=== PATIENT | female | born 1965 ===

== ENCOUNTER 2017-11-23 20:24 | Emergency (ER) | payer MEDICAID ==
[2017-11-23 20:33] VITALS: TEMP 98
--- NOTE | 2017-11-23 20:53 | ED PDOC ---
Upper Extremity Pain/Injury Time Seen by Provider: 11/23/17 20:40 Chief Complaint (Nursing): Dizziness/Lightheaded History Per: Patient History/Exam Limitations: no limitations Onset/Duration Of Symptoms: Days Current Symptoms Are (Timing): Still Present Additional Complaint(s): Hx of HLD, cervical disc herniation presenting with LUE numbness, tingling, pain. States the pain has been there for weeks but occasionally she feels a pins and needles sensation in her arm that starts at shoulder and radiates downward. She states the pain was so severe today that she became dizzy. States the symptoms wax and wane depending on the position of her arm. Denies headaches, vision changes, nor weakness of the extremity or any extremity. States she occasionally also feels similar sensation in her RUE and lower extremeties but not today. No fevers, chills, chest pain, shortness of breath, bowerl or bladder incontinence. State she takes diclofenac and naproxen but not regularly, states she takes tramadol instead. Field Consultant: Dr. Castellanos PMD: Dr. Suarez Past Medical History Reviewed: Historical Data, Nursing Documentation, Vital Signs Vital Signs: Last Vital Signs Temp 98.0 F 11/23/17 20:32 Pulse 83 11/23/17 20:32 Resp 16 11/23/17 20:32 BP 128/92 H 11/23/17 20:32 Pulse Ox 97 11/23/17 20:32 - Medical History PMH: Arthritis, Back Problems, HTN, Hyperlipidemia - Family History Family History: States: No Known Family Hx - Home Medications Home Medications: Ambulatory Orders Medication Instructions Recorded Methylprednisolone [Medrol Dose 4 mg PO DAILY #21 mg 11/23/17 Pack (21 tabs)] - Allergies Allergies/Adverse Reactions: Allergies Allergy/AdvReac Type Severity Reaction Status Date / Time No Known Allergies Allergy Verified 11/23/17 20:32 Review of Systems ROS Statement: Except As Marked, All Systems Reviewed And Found Negative Musculoskeletal: Positive for: Arm Pain Neurological: Positive for: Dizziness Physical Exam - Reviewed Nursing Documentation Reviewed: Yes Vital Signs Reviewed: Yes - Physical Exam Appears: Positive for: Well, Non-toxic, No Acute Distress Head Exam: Positive for: ATRAUMATIC, NORMAL INSPECTION, NORMOCEPHALIC Skin: Positive for: Normal Color, Warm, DRY Eye Exam: Positive for: EOMI, Normal appearance, PERRL ENT: Positive for: Normal ENT Inspection Neck: Positive for: Normal, Painless ROM Cardiovascular/Chest: Positive for: Regular Rate, Rhythm Respiratory: Positive for: CNT, Normal Breath Sounds Gastrointestinal/Abdominal: Positive for: Normal Exam, Soft Back: Positive for: Normal Inspection Extremity: Positive for: Normal ROM, Other (RUE: Full range of motion, sensation and motor stength intact, 2+ distal pulses, good capillary refill). Negative for: Tenderness, Swelling Neurologic/Psych: Positive for: Alert, call center representative II-XII, Oriented. Negative for: Motor/Sensory Deficits - ECG O2 Sat by Pulse Oximetry: 97 Pulse Ox Interpretation: Normal Medical Decision Making Medical Decision MakinPM Patient presenting with arm numbness, tingling, waxing/waning --Not concerned for central neurological problem given history and physical exam --Patient likely suffering from intermittent parenthesis related to position of arm --Advised patient to use NSAIDs for pain relief --Will recommend Medrol dose pack for inflammation --Advised patient to followup with PMD and Rheum for referral for MRI Disposition - Clinical Impression Clinical Impression: Arm paresthesia, left - Patient ED Disposition Is Patient to be Admitted: No - Disposition Referrals: Shaik Suarez MD [Medical Doctor] - Terry Castellanos Jr., MD [IM] - Disposition: Routine/Home Disposition Time: 20:58 Condition: GOOD Additional Instructions: Por favor tome la naprosina si el dolor empeora. Comience a evita el esteroide para disminuir la inflamacin. Necesitar kamla resonancia magntica de patel columna cervical, por favor amber un seguimiento con el Dr. Arellano lo ms pronto posible o con el Dr. Suarez para la referencia de la resonancia magntica. Si experimenta debilidad, dolor de yuli talia o cualquier otro sntoma preocupan te, regrese a la linda de emergencias. Prescriptions: Methylprednisolone [Medrol Dose Pack (21 tabs)] 4 mg PO DAILY #21 mg Instructions: Paresthesias (DC) Print Language: SAO TOMEAN
[2017-11-23 21:32] VITALS: BP 135/69; PULSE 82; RESP 18; O2SAT 99
== END 2017-11-23 21:31 | disposition home or self-care (01) ==
LOC: H.ER 20:24
DX: R20.2 Paresthesia of skin (principal)